=== PATIENT | male | born 1970 | race Caucasian/White ===

== ENCOUNTER 2018-01-05 16:24 | Inpatient (IN) | payer SELFPAY ==
[2018-01-05] MEDS ORDERED: MVI, Adult with Vitamin K 10 ML, Thiamine 100 MG, Folic Acid 1 MG in Sodium Chloride 0.... IV ONE ×4 (16:38)
--- NOTE | 2018-01-05 16:47 | EDM.PDOC ---
ED HPI GENERAL MEDICAL PROBLEM - General Chief Complaint: General Stated Complaint: PASSED OUT Time Seen by Provider: 01/05/18 16:42 - History of Present Illness INITIAL COMMENTS - FREE TEXT/NARRATIVE: HISTORY AND PHYSICAL: History of present illness: Patient is 47-year-old white male presents after having been drinking some rice wine at a local restaurant and eating comes in seemingly intoxicated he reportedly was drinking and had a fall backwards also he comes here via private vehicle with his and young child on arrival he is vomiting large amounts of smells like some alcohol-based product. He is moving all extremities he is not following commands clearly. Review of systems: As per history of present illness and below otherwise all systems reviewed and negative. Past medical history: As per history of present illness and as reviewed below otherwise noncontributory. Surgical history: As per history of present illness and as reviewed below otherwise noncontributory. Social history: No reported history of drug or alcohol abuse. Family history: As per history of present illness and as reviewed below otherwise noncontributory. Physical exam: HEENT: Atraumatic, normocephalic, pupils reactive, negative for conjunctival pallor or scleral icterus, mucous membranes moist, throat clear, neck supple, nontender, trachea midline. Lungs: Clear to auscultation, breath sounds equal bilaterally, chest nontender. Heart: S1S2, regular, negative for clicks, rubs, or JVD. Abdomen: Soft, nondistended, nontender. Negative for masses or hepatosplenomegaly. Negative for costovertebral tenderness. Pelvis: Stable nontender. Genitourinary: Deferred. Rectal: Deferred. Extremities: Atraumatic, negative for cords or calf pain. Neurovascular unremarkable. Neuro: Moves all extremities extremely limited exam limited but grossly nonfocal Diagnostics: CBC CMP troponin PT/INR EtOH EKG chest x-ray CT brain and C-spine Therapeutics: Banana bag monitor O2 Impression: #1 acute ethanol intoxication #2 observation status post fall Definitive disposition and diagnosis as appropriate pending reevaluation and review of above. - Related Data Allergies Allergy/AdvReac Type Severity Reaction Status Date / Time No Known Allergies Allergy Verified 01/05/18 17:36 Home Meds: Home Meds Dextroamphetamine/Amphetamine [Adderall 20 mg Tablet] 1 tab PO DAILY 01/05/18 [ History] ED ROS GENERAL - Review of Systems Review Of Systems: ROS reveals no pertinent complaints other than HPI. ED EXAM, GENERAL - Physical Exam Exam: See Below (See dictation) Course - Vital Signs Last Recorded V/S: Last Vital Signs Temp 35.4 C 01/05/18 16:43 Pulse 66 01/05/18 17:49 Resp 13 01/05/18 17:49 BP 118/77 01/05/18 17:49 Pulse Ox 99 01/05/18 17:49 - Orders/Labs/Meds Orders: Active Orders 24 hr Category Date Time Status EKG Documentation Completion [RC] STAT Care 01/05/18 16:34 Active Cervical Spine wo Cont [CT] Stat Exams 01/05/18 16:38 Taken Chest 1V Frontal [CR] Stat Exams 01/05/18 16:34 Taken Head wo Cont [CT] Stat Exams 01/05/18 16:37 Taken ETOH [ETHANOL BLOOD MEDICAL] [CHEM] Stat Lab 01/05/18 18:12 Ordered MVI, Adult with Vitamin K [Infuvite Adult] 10 ml Med 01/05/18 16:38 Active Thiamine [Vitamin B-1] 100 mg Folic Acid 1 mg Sodium Chloride 0.9% [Normal Saline] 1,000 ml IV ONETIME Sodium Chloride 0.9% [Normal Saline] 500 ml Med 01/05/18 17:00 Active IV STAT Medication Orders Multivitamins/Minerals 10 ml/Thiamine HCl 100 mg/ Folic Acid 1 mg/ Sodium Chloride 1,011.2 mls @ 500 mls/hr IV ONETIME ONE Stop: 01/05/18 18:39 Last Admin: 01/05/18 16:49 Dose: 500 mls/hr Sodium Chloride (Normal Saline) 500 mls @ 999 mls/hr IV STAT MARTINEZ Last Admin: 01/05/18 16:50 Dose: 999 mls/hr Labs: Laboratory Tests 01/05/18 01/05/18 01/05/18 Range/Units 16:50 16:50 17:44 WBC 12.56 H (4.0-11.0) K/uL RBC 4.45 L (4.50-5.90) M/uL Hgb 14.5 (13.0-17.0) g/dL Hct 40.5 (38.0-50.0) % MCV 91.0 (80.0-98.0) fL MCH 32.6 H (27.0-32.0) pg MCHC 35.8 (31.0-37.0) g/dL RDW Std Deviation 43.6 (28.0-62.0) fl RDW Coeff of Ben 13 (11.0-15.0) % Plt Count 228 (150-400) K/uL MPV 9.60 (7.40-12.00) fL Add Manual Diff YES Neutrophils % (Manual) 51 (48.0-80.0) % Lymphocytes % (Manual) 39 (16.0-40.0) % Monocytes % (Manual) 8 (0.0-15.0) % Eosinophils % (Manual) 2 (0.0-7.0) % Nucleated RBC % 0.0 /100WBC Absolute Seg Neuts 6.4 H (1.4-5.7) Lymphocytes # (Manual) 4.9 H (0.6-2.4) Monocytes # (Manual) 1.0 H (0.0-0.8) Eosinophils # (Manual) 0.3 (0.0-0.7) Nucleated RBCs # 0 K/uL Sodium 135 L (136-146) mmol/L Potassium 3.3 L (3.5-5.1) mmol/L Chloride 104 (98-110) mmol/L Carbon Dioxide 20 L (21-31) mmol/L BUN 13 (6.0-23.0) mg/dL Creatinine 0.8 (0.6-1.5) mg/dL Est Cr Clr Drug Dosing 124.19 mL/min Estimated GFR (MDRD) > 60.0 ml/min Glucose 208 H (60-110) mg/dL Calcium 8.5 L (8.8-10.8) mg/dL Total Bilirubin 0.4 (0.1-1.5) mg/dL AST 16 (5-40) IU/L ALT 19 (8-54) IU/L Alkaline Phosphatase 80 (40-150) Troponin I < 0.10 (0.0-0.29) NG/ML Total Protein 7.4 (6.0-8.0) g/dL Albumin 4.5 (3.5-5.0) g/dL Globulin 2.9 (2.0-3.5) g/dL Albumin/Globulin Ratio 1.6 (1.3-2.8) Urine Color YELLOW Urine Appearance CLEAR Urine pH 6.0 (5.0-8.0) Ur Specific [place] 1.025 (1.001-1.035) Urine Protein NEGATIVE (NEGATIVE) mg/dL Urine Glucose (UA) NEGATIVE (NEGATIVE) mg/dL Urine Ketones NEGATIVE (NEGATIVE) mg/dL Urine Occult Blood NEGATIVE (NEGATIVE) Urine Nitrite NEGATIVE (NEGATIVE) Urine Bilirubin NEGATIVE (NEGATIVE) Urine Urobilinogen 0.2 (<2.0) EU/dL Ur Leukocyte Esterase NEGATIVE (NEGATIVE) Urine RBC NONE SEEN (0-2/HPF) Urine WBC 0-1 (0-5/HPF) Ur Epithelial Cells RARE (NONE-FEW) Urine Bacteria RARE (NEGATIVE) Urine Mucus LIGHT (NONE-MOD) Urine Opiates Screen (NEGATIVE) Ur Oxycodone Screen (NEGATIVE) Urine Methadone Screen (NEGATIVE) Ur Barbiturates Screen (NEGATIVE) Ur Phencyclidine Scrn (NEGATIVE) Ur Amphetamine Screen (NEGATIVE) U Methamphetamines Scrn (NEGATIVE) U Benzodiazepines Scrn (NEGATIVE) U Cocaine Metab Screen (NEGATIVE) U Marijuana (THC) Screen (NEGATIVE) Ethyl Alcohol 324.1 mg/dL 01/05/18 Range/Units 17:51 WBC (4.0-11.0) K/uL RBC (4.50-5.90) M/uL Hgb (13.0-17.0) g/dL Hct (38.0-50.0) % MCV (80.0-98.0) fL MCH (27.0-32.0) pg MCHC (31.0-37.0) g/dL RDW Std Deviation (28.0-62.0) fl RDW Coeff of Ben (11.0-15.0) % Plt Count (150-400) K/uL MPV (7.40-12.00) fL Add Manual Diff Neutrophils % (Manual) (48.0-80.0) % Lymphocytes % (Manual) (16.0-40.0) % Monocytes % (Manual) (0.0-15.0) % Eosinophils % (Manual) (0.0-7.0) % Nucleated RBC % /100WBC Absolute Seg Neuts (1.4-5.7) Lymphocytes # (Manual) (0.6-2.4) Monocytes # (Manual) (0.0-0.8) Eosinophils # (Manual) (0.0-0.7) Nucleated RBCs # K/uL Sodium (136-146) mmol/L Potassium (3.5-5.1) mmol/L Chloride (98-110) mmol/L Carbon Dioxide (21-31) mmol/L BUN (6.0-23.0) mg/dL Creatinine (0.6-1.5) mg/dL Est Cr Clr Drug Dosing mL/min Estimated GFR (MDRD) ml/min Glucose (60-110) mg/dL Calcium (8.8-10.8) mg/dL Total Bilirubin (0.1-1.5) mg/dL AST (5-40) IU/L ALT (8-54) IU/L Alkaline Phosphatase (40-150) Troponin I (0.0-0.29) NG/ML Total Protein (6.0-8.0) g/dL Albumin (3.5-5.0) g/dL Globulin (2.0-3.5) g/dL Albumin/Globulin Ratio (1.3-2.8) Urine Color Urine Appearance Urine pH (5.0-8.0) Ur Specific [place] (1.001-1.035) Urine Protein (NEGATIVE) mg/dL Urine Glucose (UA) (NEGATIVE) mg/dL Urine Ketones (NEGATIVE) mg/dL Urine Occult Blood (NEGATIVE) Urine Nitrite (NEGATIVE) Urine Bilirubin (NEGATIVE) Urine Urobilinogen (<2.0) EU/dL Ur Leukocyte Esterase (NEGATIVE) Urine RBC (0-2/HPF) Urine WBC (0-5/HPF) Ur Epithelial Cells (NONE-FEW) Urine Bacteria (NEGATIVE) Urine Mucus (NONE-MOD) Urine Opiates Screen NEGATIVE (NEGATIVE) Ur Oxycodone Screen NEGATIVE (NEGATIVE) Urine Methadone Screen NEGATIVE (NEGATIVE) Ur Barbiturates Screen NEGATIVE (NEGATIVE) Ur Phencyclidine Scrn NEGATIVE (NEGATIVE) Ur Amphetamine Screen POSITIVE (NEGATIVE) U Methamphetamines Scrn NEGATIVE (NEGATIVE) U Benzodiazepines Scrn NEGATIVE (NEGATIVE) U Cocaine Metab Screen NEGATIVE (NEGATIVE) U Marijuana (THC) Screen NEGATIVE (NEGATIVE) Ethyl Alcohol mg/dL Meds: Medications Generic Name Dose Route Start Last Admin Trade Name Freq PRN Reason Stop Dose Admin Multivitamins/Minerals 10 ml/ 1,011.2 mls @ 500 mls/hr 01/05/18 16:38 16:49 Thiamine HCl 100 mg/ Folic IV 01/05/18 18:39 500 mls/hr Acid 1 mg/ Sodium Chloride ONETIME ONE Administration Sodium Chloride 500 mls @ 999 mls/hr 01/05/18 17:00 01/05/18 16:50 Normal Saline IV 999 mls/hr STAT MARTINEZ Administration Departure - Departure Time of Disposition: 18:13 Disposition: Refer to Observation Condition: Good Clinical Impression: Alcohol abuse - Discharge Information Referrals: PCP,None [Primary Care Provider] - Forms: ED Department Discharge - My Orders Last 24 Hours: My Active Orders 01/05/18 17:00 Sodium Chloride 0.9% [Normal Saline] 500 ml IV STAT 01/05/18 18:12 ETOH [ETHANOL BLOOD MEDICAL] [CHEM] Stat - Assessment/Plan Last 24 Hours: My Active Orders 01/05/18 17:00 Sodium Chloride 0.9% [Normal Saline] 500 ml IV STAT 01/05/18 18:12 ETOH [ETHANOL BLOOD MEDICAL] [CHEM] Stat
[2018-01-05] MEDS ORDERED: Sodium Chloride 0.9% 500 ML IV SCH ×2 (17:00→19:30)
[2018-01-05 17:30] LABS: CHLORIDE,CL 104 mmol/L (98-110); SODIUM,NA 135 mmol/L (136-146)
--- NOTE | 2018-01-05 22:38 | PCM.HP ---
H&P History of Present Illness - General Admit Problem/Dx: Admission Diagnosis/Problem Admission Diagnosis/Problem Alcohol intoxication - History of Present Illness Initial Comments - Free Text/Narative: 47 yo male who was brought in by after drinking rice wine at a restaurant. He was intoxicated and vomiting up what the ED provider thought was alcohol based drink. - Related Data Allergies/Adverse Reactions: Allergies Allergy/AdvReac Type Severity Reaction Status Date / Time No Known Allergies Allergy Verified 01/05/18 17:36 Home Medications: Home Meds Dextroamphetamine/Amphetamine [Adderall 20 mg Tablet] 1 tab PO DAILY 01/05/18 [ History] Past Medical History - Past Surgical History HEENT Surgical History: Reports: Other (See Below) Other HEENT Surgeries/Procedures: neck repair Social & Family History - Family History Family Medical History: Noncontributory - Tobacco Use Smoking Status *Q: Never Smoker - Recreational Drug Use Recreational Drug Use: No H&P Review of Systems - Review of Systems: Review Of Systems: Unable To Obtain Exam - Vital Signs Vital Signs: Last Vital Signs Temp 36.1 C 01/05/18 22:00 Pulse 79 01/05/18 22:00 Resp 13 01/05/18 22:00 BP 116/78 01/05/18 22:00 Pulse Ox 100 01/05/18 22:00 Weight: 117.934 kg - Exam General: Obtunded (does not arouse to sternal rub) Lungs: Clear to Auscultation, Normal Respiratory Effort Cardiovascular: Regular Rate, Regular Rhythm GI/Abdominal Exam: Normal Bowel Sounds, Soft, Non-Tender Extremities: No Pedal Edema Skin: Warm, Dry, Intact Neurological: Other (has purposeful movements of all four extremities) - Patient Data Lab Results Last 24 hrs: Laboratory Results - last 24 hr 01/05/18 01/05/18 01/05/18 Range/Units 16:50 16:50 17:44 WBC 12.56 H (4.0-11.0) K/uL RBC 4.45 L (4.50-5.90) M/uL Hgb 14.5 (13.0-17.0) g/dL Hct 40.5 (38.0-50.0) % MCV 91.0 (80.0-98.0) fL MCH 32.6 H (27.0-32.0) pg MCHC 35.8 (31.0-37.0) g/dL RDW Std Deviation 43.6 (28.0-62.0) fl RDW Coeff of Ben 13 (11.0-15.0) % Plt Count 228 (150-400) K/uL MPV 9.60 (7.40-12.00) fL Add Manual Diff YES Neutrophils % (Manual) 51 (48.0-80.0) % Lymphocytes % (Manual) 39 (16.0-40.0) % Monocytes % (Manual) 8 (0.0-15.0) % Eosinophils % (Manual) 2 (0.0-7.0) % Nucleated RBC % 0.0 /100WBC Absolute Seg Neuts 6.4 H (1.4-5.7) Lymphocytes # (Manual) 4.9 H (0.6-2.4) Monocytes # (Manual) 1.0 H (0.0-0.8) Eosinophils # (Manual) 0.3 (0.0-0.7) Nucleated RBCs # 0 K/uL Sodium 135 L (136-146) mmol/L Potassium 3.3 L (3.5-5.1) mmol/L Chloride 104 (98-110) mmol/L Carbon Dioxide 20 L (21-31) mmol/L BUN 13 (6.0-23.0) mg/dL Creatinine 0.8 (0.6-1.5) mg/dL Est Cr Clr Drug Dosing 124.19 mL/min Estimated GFR (MDRD) > 60.0 ml/min Glucose 208 H (60-110) mg/dL Calcium 8.5 L (8.8-10.8) mg/dL Total Bilirubin 0.4 (0.1-1.5) mg/dL AST 16 (5-40) IU/L ALT 19 (8-54) IU/L Alkaline Phosphatase 80 (40-150) Troponin I < 0.10 (0.0-0.29) NG/ML Total Protein 7.4 (6.0-8.0) g/dL Albumin 4.5 (3.5-5.0) g/dL Globulin 2.9 (2.0-3.5) g/dL Albumin/Globulin Ratio 1.6 (1.3-2.8) Urine Color YELLOW Urine Appearance CLEAR Urine pH 6.0 (5.0-8.0) Ur Specific [place] 1.025 (1.001-1.035) Urine Protein NEGATIVE (NEGATIVE) mg/dL Urine Glucose (UA) NEGATIVE (NEGATIVE) mg/dL Urine Ketones NEGATIVE (NEGATIVE) mg/dL Urine Occult Blood NEGATIVE (NEGATIVE) Urine Nitrite NEGATIVE (NEGATIVE) Urine Bilirubin NEGATIVE (NEGATIVE) Urine Urobilinogen 0.2 (<2.0) EU/dL Ur Leukocyte Esterase NEGATIVE (NEGATIVE) Urine RBC NONE SEEN (0-2/HPF) Urine WBC 0-1 (0-5/HPF) Ur Epithelial Cells RARE (NONE-FEW) Urine Bacteria RARE (NEGATIVE) Urine Mucus LIGHT (NONE-MOD) Urine Opiates Screen (NEGATIVE) Ur Oxycodone Screen (NEGATIVE) Urine Methadone Screen (NEGATIVE) Ur Barbiturates Screen (NEGATIVE) Ur Phencyclidine Scrn (NEGATIVE) Ur Amphetamine Screen (NEGATIVE) U Methamphetamines Scrn (NEGATIVE) U Benzodiazepines Scrn (NEGATIVE) U Cocaine Metab Screen (NEGATIVE) U Marijuana (THC) Screen (NEGATIVE) Ethyl Alcohol 324.1 mg/dL 01/05/18 01/05/18 Range/Units 17:51 18:15 WBC (4.0-11.0) K/uL RBC (4.50-5.90) M/uL Hgb (13.0-17.0) g/dL Hct (38.0-50.0) % MCV (80.0-98.0) fL MCH (27.0-32.0) pg MCHC (31.0-37.0) g/dL RDW Std Deviation (28.0-62.0) fl RDW Coeff of Ben (11.0-15.0) % Plt Count (150-400) K/uL MPV (7.40-12.00) fL Add Manual Diff Neutrophils % (Manual) (48.0-80.0) % Lymphocytes % (Manual) (16.0-40.0) % Monocytes % (Manual) (0.0-15.0) % Eosinophils % (Manual) (0.0-7.0) % Nucleated RBC % /100WBC Absolute Seg Neuts (1.4-5.7) Lymphocytes # (Manual) (0.6-2.4) Monocytes # (Manual) (0.0-0.8) Eosinophils # (Manual) (0.0-0.7) Nucleated RBCs # K/uL Sodium (136-146) mmol/L Potassium (3.5-5.1) mmol/L Chloride (98-110) mmol/L Carbon Dioxide (21-31) mmol/L BUN (6.0-23.0) mg/dL Creatinine (0.6-1.5) mg/dL Est Cr Clr Drug Dosing mL/min Estimated GFR (MDRD) ml/min Glucose (60-110) mg/dL Calcium (8.8-10.8) mg/dL Total Bilirubin (0.1-1.5) mg/dL AST (5-40) IU/L ALT (8-54) IU/L Alkaline Phosphatase (40-150) Troponin I (0.0-0.29) NG/ML Total Protein (6.0-8.0) g/dL Albumin (3.5-5.0) g/dL Globulin (2.0-3.5) g/dL Albumin/Globulin Ratio (1.3-2.8) Urine Color Urine Appearance Urine pH (5.0-8.0) Ur Specific [place] (1.001-1.035) Urine Protein (NEGATIVE) mg/dL Urine Glucose (UA) (NEGATIVE) mg/dL Urine Ketones (NEGATIVE) mg/dL Urine Occult Blood (NEGATIVE) Urine Nitrite (NEGATIVE) Urine Bilirubin (NEGATIVE) Urine Urobilinogen (<2.0) EU/dL Ur Leukocyte Esterase (NEGATIVE) Urine RBC (0-2/HPF) Urine WBC (0-5/HPF) Ur Epithelial Cells (NONE-FEW) Urine Bacteria (NEGATIVE) Urine Mucus (NONE-MOD) Urine Opiates Screen NEGATIVE (NEGATIVE) Ur Oxycodone Screen NEGATIVE (NEGATIVE) Urine Methadone Screen NEGATIVE (NEGATIVE) Ur Barbiturates Screen NEGATIVE (NEGATIVE) Ur Phencyclidine Scrn NEGATIVE (NEGATIVE) Ur Amphetamine Screen POSITIVE (NEGATIVE) U Methamphetamines Scrn NEGATIVE (NEGATIVE) U Benzodiazepines Scrn NEGATIVE (NEGATIVE) U Cocaine Metab Screen NEGATIVE (NEGATIVE) U Marijuana (THC) Screen NEGATIVE (NEGATIVE) Ethyl Alcohol 310.3 mg/dL Result Diagrams: 01/05/18 16:50 01/05/18 16:50 *Q Meaningful Use (ADM) - VTE *Q VTE Criteria *Q: - Stroke *Q Stroke Criteria *Q: - AMI *Q AMI Criteria *Q: Problem List Initiated/Reviewed/Updated: Yes Orders Last 24hrs: Active Orders 24 hr Category Date Time Status Admission Status [Patient Status] [ADT] Stat ADT 01/05/18 18:48 Active EKG Documentation Completion [RC] STAT Care 01/05/18 16:34 Active Oxygen Therapy [RC] PRN Care 01/05/18 22:36 Ordered VTE/DVT Education [RC] PER UNIT ROUTINE Care 01/05/18 22:36 Ordered Vital Signs [RC] Q4H Care 01/05/18 22:36 Ordered Cervical Spine wo Cont [CT] Stat Exams 01/05/18 16:38 Taken Chest 1V Frontal [CR] Stat Exams 01/05/18 16:34 Taken Head wo Cont [CT] Stat Exams 01/05/18 16:37 Taken Sodium Chloride 0.9% [Normal Saline] 500 ml Med 01/05/18 19:30 Active IV ASDIRECTED Sodium Chloride 0.9% [Normal Saline] 500 ml Med 01/05/18 17:00 Active IV STAT Sodium Chloride 0.9% with KCl 40 mEq @ Enter Rate (1000 Med 01/05/18 22:45 Ordered mL) Sodium Chloride 0.9% with KCl [Normal Saline with 40 mEq KCl] 1,000 ml IV ASDIRECTED Medication Orders Sodium Chloride (Normal Saline) 500 mls @ 999 mls/hr IV STAT MARTINEZ Last Admin: 01/05/18 16:50 Dose: 999 mls/hr Sodium Chloride (Normal Saline) 500 mls @ 125 mls/hr IV ASDIRECTED MARTINEZ Last Admin: 01/05/18 19:23 Dose: 125 mls/hr Assessment/Plan Comment:: 47 yo male admitted with acute alcohol intoxication. We will monitor overnight.
[2018-01-05] MEDS ORDERED: Sodium Chloride 0.9% with KCl 1,000 ML IV SCH (22:45)
[2018-01-06] MEDS ORDERED: Ondansetron 4 MG/2 ML SDV IVPUSH PRN (03:33)
[2018-01-06] MEDS ORDERED: FLU Vacc QS 2017-18 (36mos UP)/PF 60 MCG/0.5 ML Syringe IM ONE (09:00)
--- NOTE | 2018-01-06 13:36 | CT ---
EXAM DATE: 01/05/18 PATIENT'S AGE: 47 Patient: VERENA POTTS Facility: [place], [place] Site . Site : 1970 Study: CT Head [id number]/21/2018 5:23:38 PM Ordering Physician: Doctor Chan Final Report: INDICATION: Altered Mental Status CT HEAD WITHOUT CONTRAST TECHNIQUE: Multiple axial CT images were performed through the head without intravenous contrast administration. COMPARISON: No previous studies are currently available for comparison. FINDINGS: No acute intracranial hemorrhage is identified. No extra-axial collections are evident and there is no mass effect or midline shift. Ventricles are normal in size and configuration. Brain parenchyma appears normal with unremarkable miller-white differentiation. Osseous structures are within normal limits and no fractures are seen. Included portions of the paranasal sinuses and mastoid air cells are normally aerated. IMPRESSION: Normal non-contrast head CT. ANDREY VALADEZ MD [employer] Dictated by: Nick Valadez MD @ 01/05/2018 18:02:29 (Electronic Signature) Report Signed by Proxy. [facility]
--- NOTE | 2018-01-06 13:37 | CT ---
EXAM DATE: 01/05/18 PATIENT'S AGE: 47 Patient: VERENA POTTS Facility: [place], [place] Site . Site : 1970 Study: CT Spine Cervical [id number]/21/2018 5:24:11 PM Ordering Physician: Doctor Chan Final Report: INDICATION: fall CT CERVICAL SPINE WITHOUT CONTRAST TECHNIQUE: Multidetector axial CT imaging was performed through the cervical spine, without contrast. Sagittal and coronal reconstructions were generated. FINDINGS: No acute fractures are identified. Multilevel degenerative change is noted in the cervical spine, including degenerative disc disease at C4-5, and C6 -7 and scattered uncovertebral joint arthrosis and hypertrophy, greatest on the left at C5-6 and C6-7. There is straightening of cervical lordosis. Osseous alignment is otherwise within normal limits and no subluxation is seen. Prevertebral soft tissues are unremarkable. Included portions of the airway and lung apices are within normal limits. IMPRESSION: 1. Straightened lordosis, possibly due to muscle spasm or merely reflecting positioning. No fracture, subluxation, or other acute finding identified. 2. Cervical spondylosis, as noted above. ANDREY VALADEZ MD [employer] Dictated by Nick Valadez MD @ 01/05/2018 6:05:32 PM Dictated by: Nick Valadez MD @ 01/05/2018 18:07:15 (Electronic Signature) Report Signed by Proxy. [facility]
--- NOTE | 2018-01-06 13:38 | CR ---
EXAM DATE: 01/05/18 PATIENT'S AGE: 47 Patient: VERENA POTTS Facility: [place], [place] Site . Site : 1970 Study: XRay Chest [id number]/21/2018 5:28:14 PM Ordering Physician: Mercedes Joshi Final Report: INDICATION: Altered Mental Status TECHNIQUE: Chest 1 view COMPARISON: None FINDINGS: Cardiovascular and mediastinum: Heart size and vasculature are normal in caliber and appearance. Mediastinum is within normal limits. Lungs and pleural space: Low lung volumes accentuating the cardiac silhouette and central vascularity. Questionable right suprahilar fullness. No sign of pleural effusion. No pneumothorax. Bones and soft tissues: No significant findings. IMPRESSION: Low lung volumes accentuating the cardiac silhouette and central vascularity. Questionable right suprahilar fullness. Recommend repeat PA and lateral chest radiograph are improved inspiration. Dictated by Ricky Rodrigues MD @ 01/05/2018 6:01:14 PM Dictated by: Ricky Rodrigues MD @ 01/05/2018 18:01:25 (Electronic Signature) Report Signed by Proxy. [facility]
== END 2018-01-06 12:50 | disposition home or self-care (01) | DRG 897 ==
LOC: MW.ED 16:24 → MW.ICU 18:48
PROVIDERS: ADMIT Internal Medicine; ATTEND Internal Medicine
DX: F10.129 Alcohol abuse with intoxication, unspecified (principal); W18.30XA Fall on same level, unspecified, initial encounter; Y93.89 Activity, other specified; Y92.511 Restaurant or cafe as the place of occurrence of the external cause
CPT/HCPCS: 36415; 70450; 70450-26; 71045; 71045-26; 72125; 72125-26; 80053; 80305; 81001; 83036; 84484; 85025; 90686; 96361; 96365; 96366; 99284; 99285-25; G0008; G0480; J2405; J3411; J3480; J7040

== ENCOUNTER 2021-06-08 20:40 | Emergency (ER) | payer BC, OTHER ==
[2021-06-08] MEDS ORDERED: Diphtheria,Pertussis(Acell),Tetanus Vaccine 0.5 ML Syringe IM ONE (21:03)
[2021-06-08] MEDS ORDERED: Lidocaine 1% PF 2 ML SDV INJECT ONE (21:03)
[2021-06-08] MEDS ORDERED: Mupirocin Oint 22 GM Tube TOP ONE (21:03)
[2021-06-08] MEDS ORDERED: Bacitracin Oint 1 GM U/D Packet ONE (21:07)
[2021-06-08] MEDS ORDERED: Bacitracin Oint 1 GM U/D Packet TOP ONE (21:17)
--- NOTE | 2021-06-08 21:29 | EDM.PDOC ---
ED HPI GENERAL MEDICAL PROBLEM - General Chief Complaint: Laceration Stated Complaint: CUT THUMB ON RIGHT HAND Time Seen by Provider: 06/08/21 20:41 Source of Information: Reports: Patient History Limitations: Reports: No Limitations - History of Present Illness INITIAL COMMENTS - FREE TEXT/NARRATIVE: HISTORY AND PHYSICAL: History of present illness: Patient is a 51-year-old male who presents to the emergency room with complaints of a laceration to the pad of his right distal thumb. He was doing dishes when he cut his thumb resulting in the laceration. He is unsure of his last tetanus update. Denies any other injury and offers no systemic complaints. Review of systems: As per history of present illness and below otherwise all systems reviewed and negative. Past medical history: As per history of present illness and as reviewed below otherwise noncontributory. Surgical history: As per history of present illness and as reviewed below otherwise noncontributory. Social history: See social history for further information Family history: As per history of present illness and as reviewed below otherwise noncontributory. Physical exam: General: Well developed and well nourished 51-year-old male. Alert and orientated x 3. Nontoxic in appearance and in no acute distress. Vital signs are stable and have been reviewed by me. Nursing notes were reviewed. HEENT: Atraumatic, normocephalic, pupils equal and reactive bilaterally, negative for conjunctival pallor or scleral icterus, mucous membranes moist, trachea midline. No drooling or trismus noted. No meningeal signs. No hot potato voice noted. Skin: 1.5 cm laceration to the pad of the right distal thumb. No active bleeding. This does not involve the nailbed. Remaining skin is intact, warm, dry. No lesions or rashes noted. Hematologic: No petechiae or purpra. Mucosa appropriate color and normal nail bed color and refill. Extremities: See skin for details, moves all extremities per self without difficulty or deficits. Neurovascular unremarkable. Neuro: Awake, alert, oriented. Cranial nerves II through XII unremarkable. Cerebellum unremarkable. Motor and sensory unremarkable throughout. Exam nonfocal. Psychiatric: Mood and affect are appropriate. Normal thought process. Answering questions appropriately. Notes: *This patient was seen and evaluated during the 2019 SARS-CoV-2 novel cor onavirus pandemic period. Community viral transmission is ongoing at time of this encounter and the emergency department is operating under pandemic response procedures. Chlorhexidine and wound wash was used to thoroughly irrigate the lacerated site. 1% lidocaine was used to anesthetize the area. Usual and customary procedures were followed for suture placement. 4-0, #5 interrupted sutures were placed. Nonstick bacitracin dressing was applied. I have talked with the patient about today's findings, in addition to providing specific details for plan of care. Reassessment at the time of disposition demonstrates that the patient is in no acute distress. The patient is stable for discharge, counseling was provided and we discussed in great detail signs and symptoms that would prompt them to return to the Emergency Department. Medication, follow up and supportive care measures were reviewed and discussed. Voices understanding and is agreeable to plan of care. Denies any further questions or concerns at this time. Diagnostics: None Therapeutics: Lidocaine, Tdap, bacitracin Prescription: None Impression: Laceration Plan: 1. You were evaluated today on an emergent basis. Keep the skin clean and dry. Wash gently with mild soap and water twice daily. Your sutures will need to be removed in 7-10 days. You can apply bacitracin for the first 1 to 2 days, then after that please leave any ointments or creams off of it. 2. You can alternate Tylenol and ibuprofen as needed for pain and fever management. 3. We encourage you to follow up with your primary care provider and/or recommended specialist in the next few days for re-evaluation and further care/management. 4. If your symptoms should worsen, new symptoms develop or any of the signs and symptoms we discussed should arise please return to the emergency room or call 911 (if needed). Definitive disposition and diagnosis as appropriate pending reevaluation and review of above. Right Finger-Thumb Pain Score (Numeric/FACES): 1 - Related Data Allergies Allergy/AdvReac Type Severity Reaction Status Date / Time No Known Allergies Allergy Verified 06/08/21 20:55 Home Meds: Home Meds Dextroamphetamine/Amphetamine [Adderall 20 mg Tablet] 1 tab PO DAILY 01/05/18 [History] Past Medical History Cardiovascular History: Reports: None Respiratory History: Reports: None Other Respiratory History: pneumonia and pleurisy3 yrs ago Gastrointestinal History: Reports: None Genitourinary History: Reports: None Musculoskeletal History: Reports: None Neurological History: Reports: None Psychiatric History: Reports: None Endocrine/Metabolic History: Reports: None Hematologic History: Reports: None Immunologic History: Reports: None Oncologic (Cancer) History: Reports: None Dermatologic History: Reports: None - Infectious Disease History Infectious Disease History: Reports: None - Past Surgical History Head Surgeries/Procedures: Reports: None HEENT Surgical History: Reports: Other (See Below) Other HEENT Surgeries/Procedures: neck repair Musculoskeletal Surgical History: Reports: Other (See Below) Other Musculoskeletal Surgeries/Procedures:: right arm- below the elbow Social & Family History - Family History Family Medical History: No Pertinent Family History - Tobacco Use Tobacco Use Status *Q: Never Tobacco User Second Hand Smoke Exposure: No - Caffeine Use Caffeine Use: Reports: Soda - Recreational Drug Use Recreational Drug Use: No ED ROS GENERAL - Review of Systems Review Of Systems: Comprehensive ROS is negative, except as noted in HPI. ED EXAM, SKIN/RASH Exam: See Below (See dictation) ED SKIN PROCEDURES - Laceration/Wound Repair Right thumb Appearance: Subcutaneous, Linear, Clean Distal NVT: Neuro & Vascular Intact, No Tendon Injury Anesthetic Type: Local Local Anesthesia - Lidocaine (Xylocaine): 1% Plain Local Anesthetic Volume: 1cc Skin Prep: Chlorhexidine (Hibiciens), Saline, Sterile Drape Saline Irrigation (cc's): 250 Exploration/Debridement/Repair: Wound Explored, In a Bloodless Field, Explored to Base, No Foreign Material Found Closed with: Sutures Lac/Wound length In cm: 1.5 Suture Size: 4-0 # of Sutures: 5 Suture Type: Nylon, Interrupted, Simple Drain Placement: No Sterile Dressing Applied: None Tetanus Status Addressed: Yes Complications: No Course - Vital Signs Last Recorded V/S: Last Vital Signs Temp 97.7 F 06/08/21 20:49 Pulse 91 06/08/21 20:49 Resp 16 06/08/21 20:49 BP 129/87 06/08/21 20:49 Pulse Ox 97 06/08/21 20:49 - Orders/Labs/Meds Orders: Active Orders 24 hr Category Date Time Status Vaccines to be Administered [RC] PER UNIT ROUTINE Care 06/08/21 21:04 Ordered Meds: Medications Discontinued Medications Generic Name Dose Route Start Last Admin Trade Name Freq PRN Reason Stop Dose Admin Bacitracin Confirm 06/08/21 21:07 06/08/21 21:17 Bacitracin Oint 1 Gm U/D Packet Administered 06/08/21 21:08 Not Given Dose 1 dose .ROUTE .STK-MED ONE Bacitracin 1 dose 06/08/21 21:17 06/08/21 21:18 Bacitracin Oint 1 Gm U/D Packet TOP 06/08/21 21:18 1 dose ONETIME ONE Administration Diphtheria/Tetanus/Acell Pertussis 0.5 ml 06/08/21 21:03 06/08/21 21:11 Diphtheria,Pertussis(Acell),Tetanus Vaccine 0.5 Ml Syringe IM 06/08/21 21:04 0.5 ml .ONCE ONE Administration Lidocaine HCl 2 ml 06/08/21 21:03 06/08/21 21:11 Lidocaine 1% Pf 2 Ml Sdv INJECT 06/08/21 21:04 2 ml ONETIME ONE Administration Mupirocin 1 gm 06/08/21 21:03 06/08/21 21:16 Mupirocin Oint 22 Gm Tube TOP 06/08/21 21:04 Not Given ONETIME ONE Departure - Departure Time of Disposition: 21:30 Disposition: Home, Self-Care 01 Clinical Impression: Laceration - Discharge Information Instructions: Laceration Care, Adult, [id number] Referrals: Long Chapman MD [Primary Care Provider] - Additional Instructions: The following information is given to patients seen in the emergency department who are being discharged to home. This information is to outline your options for follow-up care. We provide all patients seen in our emergency department with a follow-up referral. The need for follow-up, as well as the timing and circumstances, are variable depending upon the specifics of your emergency department visit. If you don't have a primary care physician on staff, we will provide you with a referral. We always advise you to contact your personal physician following an emergency department visit to inform them of the circumstance of the visit and for follow-up with them and/or the need for any referrals to a consulting specialist. The emergency department will also refer you to a specialist when appropriate. This referral assures that you have the opportunity for follow-up care with a specialist. All of these measure are taken in an effort to provide you with optimal care, which includes your follow-up. Under all circumstances we always encourage you to contact your private physician who remains a resource for coordinating your care. When calling for follow-up care, please make the office aware that this follow-up is from your recent emergency room visit. If for any reason you are refused follow-up, please contact the [facility] Emergency Department at and asked to speak to the emergency department charge nurse. [facility] [address] [place] [address] [facility] [address] [place] [address] Thank you for choosing the [facility] emergency department in [place] for your medical needs today. It was a pleasure caring for you. Today you were seen in the emergency department for laceration care. 1. You were evaluated today on an emergent basis. Keep the skin clean and dry. Wash gently with mild soap and water twice daily. Your sutures will need to be removed in 7-10 days. You can apply bacitracin for the first 1 to 2 days, then after that please leave any ointments or creams off of it. 2. You can alternate Tylenol and ibuprofen as needed for pain and fever management. 3. We encourage you to follow up with your primary care provider and/or recommended specialist in the next few days for re-evaluation and further care/management. 4. If your symptoms should worsen, new symptoms develop or any of the signs and symptoms we discussed should arise please return to the emergency room or call 911 (if needed). Sepsis Event Note (ED) - Evaluation Sepsis Screening Result: No Definite Risk - Focused Exam Vital Signs: Vital Signs Temp Pulse Resp BP Pulse Ox 06/08/21 20:49 97.7 F 91 16 129/87 97 - My Orders Last 24 Hours: My Active Orders 06/08/21 21:04 Vaccines to be Administered [RC] PER UNIT ROUTINE - Assessment/Plan Last 24 Hours: My Active Orders 06/08/21 21:04 Vaccines to be Administered [RC] PER UNIT ROUTINE
== END 2021-06-08 21:39 | disposition home or self-care (01) ==
LOC: MW.ED 20:40
DX: S61.011A Laceration without foreign body of right thumb without damage to nail, initial encounter (principal); Z23 Encounter for immunization; W26.0XXA Contact with knife, initial encounter; Y93.G3 Activity, cooking and baking
CPT/HCPCS: 12001; 90471; 90715; 99282-25

== ENCOUNTER 2021-12-10 09:33 | Day surgery (SDC) | payer BC ==
[~2021-12-10 09:33] MED LIST: Lactated Ringers 1,000 ML IV SCH; ceFAZolin 2 GM in Premix Bag 1 BAG IV SCH
[2021-12-10] MEDS ORDERED: Metoclopramide 10 MG/2 ML SDV IVPUSH PRN (10:20)
[2021-12-10] MEDS ORDERED: Albuterol 0.083% 2.5 MG/3 ML Neb Soln NEB PRN (10:20)
[2021-12-10] MEDS ORDERED: HYDROmorphone 1 MG/ML Syringe IVPUSH PRN (10:20)
[2021-12-10] MEDS ORDERED: Ondansetron 4 MG/2 ML SDV IVPUSH PRN (10:20)
[2021-12-10] MEDS ORDERED: Naloxone 0.4 MG/ML SDV IVPUSH PRN (10:20)
[2021-12-10] MEDS ORDERED: fentaNYL 100 MCG/2 ML SDV IVPUSH PRN (10:20)
[2021-12-10] MEDS ORDERED: Ropivacaine 0.5% 5 MG/ML 30 ML SDV ONE (10:21)
[2021-12-10] MEDS ORDERED: Midazolam 1 MG/ML 2 ML SDV ONE (10:24)
[2021-12-10] MEDS ORDERED: Propofol 200 MG/20 ML SDV ONE (12:12)
[2021-12-10] MEDS ORDERED: Lidocaine 2% 5 ML SDV ONE (12:12)
[2021-12-10] MEDS ORDERED: ceFAZolin 1 GM Vial ONE (12:44)
[2021-12-10] MEDS ORDERED: fentaNYL 100 MCG/2 ML SDV ONE (12:58)
[2021-12-10] MEDS ORDERED: Bupivacaine 25%/EPINEPHrine/PF 30 ML ONE (13:13)
[2021-12-10] MEDS ORDERED: Ketorolac 30 MG/ML SDV ONE (14:12)
[2021-12-10] MEDS ORDERED: Ondansetron 4 MG/2 ML SDV ONE (14:12)
== END 2021-12-10 16:35 | disposition home or self-care (01) ==
LOC: MW.SDS 09:33
PROVIDERS: ATTEND Orthopaedic Surgery
DX: S52.022A Displaced fracture of olecranon process without intraarticular extension of left ulna, initial encounter for closed fracture (principal); F98.8 Other specified behavioral and emotional disorders with onset usually occurring in childhood and adolescence; E66.9 Obesity, unspecified; F17.210 Nicotine dependence, cigarettes, uncomplicated; Z79.899 Other long term (current) drug therapy; Z68.35 Body mass index [BMI] 35.0-35.9, adult
CPT/HCPCS: 24685; J0330; J0690; J1885; J2250; J2405; J2704; J2795; J3010; J7120; 01740; 76942; C1713; C1776

== ENCOUNTER 2023-01-06 07:11 | Day surgery (SDC) | payer BC ==
[~2023-01-06 07:11] MED LIST changes: -ceFAZolin 2 GM in Premix Bag 1 BAG IV SCH
[2023-01-06] MEDS ORDERED: fentaNYL 100 MCG/2 ML SDV ONE (07:25)
[2023-01-06] MEDS ORDERED: Propofol 200 MG/20 ML SDV ONE ×2 (07:25→10:29)
[2023-01-06] MEDS ORDERED: Lidocaine 2% 5 ML SDV ONE (07:25)
== END 2023-01-06 11:40 | disposition home or self-care (01) ==
LOC: MW.SDS 07:11
PROVIDERS: ATTEND Surgery
DX: Z12.11 Encounter for screening for malignant neoplasm of colon (principal); K63.5 Polyp of colon; K64.8 Other hemorrhoids; G47.00 Insomnia, unspecified; F98.8 Other specified behavioral and emotional disorders with onset usually occurring in childhood and adolescence; M54.2 Cervicalgia; G89.29 Other chronic pain; Z79.899 Other long term (current) drug therapy
CPT/HCPCS: 45380; J2704; J3010; J7120; J3490